=== PATIENT | female | born 1975 | race Two or more races ===

== ENCOUNTER → 2021-09-02 | Emergency (ER) | payer OTHER ==
[~2021-09-02] VITALS: Ht 152.4 cm; Wt 56.7 kg
[~2021-09-02] MED LIST: BUTALB-ACETAMI1 EAC2 PO
== END | disposition home or self-care (01) ==
LOC: ER 17:18
DX: G43.909 Migraine, unspecified, not intractable, without status migrainosus (principal)

== ENCOUNTER 2024-03-15 07:17 | Outpatient (CLI) | payer OTHER | END 2024-03-15 07:18 | disposition home or self-care (01) | LOC: NUCLEAR 07:17 | PROVIDERS: ATTEND Internal Medicine Endocrinology, Diabetes & Metabolism | DX: E06.0 Acute thyroiditis (principal) ==

== ENCOUNTER 2024-03-16 07:32 | Outpatient (CLI) | payer OTHER | END 2024-03-16 07:33 | disposition home or self-care (01) | LOC: NUCLEAR 07:32 | PROVIDERS: ATTEND Internal Medicine Endocrinology, Diabetes & Metabolism | DX: E06.0 Acute thyroiditis (principal) ==